=== PATIENT | male | born 1990 | race Caucasian/White ===

== ENCOUNTER 2018-08-15 19:54 | Emergency (ER) | payer MEDICAID ==
[~2018-08-15] VITALS: Ht 167.6 cm; Wt 70.3 kg
[2018-08-15 20:37] VITALS: BP 141/89; Ht 167.6 cm; Wt 70.3 kg
== END 2018-08-15 22:17 | disposition home or self-care (01) ==
LOC: ED 19:54
DX: J86.9 Pyothorax without fistula (principal)
CPT/HCPCS: J2001

== ENCOUNTER 2018-08-17 17:11 | Emergency (ER) | payer MEDICAID ==
[~2018-08-17] VITALS: Ht 167.6 cm; Wt 69.5 kg
[2018-08-17 17:13] VITALS: BP 142/89; Ht 167.6 cm; Wt 69.5 kg
== END 2018-08-17 18:29 | disposition home or self-care (01) ==
LOC: ED 17:11
DX: L02.213 Cutaneous abscess of chest wall (principal)